=== PATIENT | female | born 1965 | race Caucasian/White ===

== ENCOUNTER 2016-07-07 14:06 | Day surgery (SDC) | payer OTHER ==
[2016-07-04 12:06] VITALS: BMI 29.6
[2016-07-07] MEDS ORDERED: SCOPOLAMINE HYDROBROMIDE 1 PATCH PATCH.TD72 ONE (15:29)
[2016-07-07] MEDS ORDERED: MIDAZOLAM HCL 2 MG/2 ML SINGLE DOSE VIAL ONE ×3 (15:34→15:37)
[2016-07-07] MEDS ORDERED: PROPOFOL 20 ML ONE ×2 (15:37→15:53)
[2016-07-07] MEDS ORDERED: SUCCINYLCHOLINE CHLORIDE 200 MG/10 ML VIAL ONE (15:37)
[2016-07-07] MEDS ORDERED: LIDOCAINE HCL/PF 2% SDV 5ML VIAL ONE (15:37)
[2016-07-07] MEDS ORDERED: ACETAMINOPHEN INJECTION 100 ML IVPB ONE (16:05)
[2016-07-07] MEDS ORDERED: DEXAMETHASONE SOD PHOSPHATE 4 MG/1 ML VIAL ONE (16:57)
[2016-07-07] MEDS ORDERED: PROMETHAZINE HCL 25 MG/1 ML VIAL IVPUSH PRN (17:33)
[2016-07-07] MEDS ORDERED: ONDANSETRON 4 MG/2 ML VIAL IVPUSH PRN (17:33)
[2016-07-07] MEDS ORDERED: oxyCODONE HCL 5 MG TABLET PO PRN ×2 (17:33→17:37)
--- NOTE | 2016-07-07 17:33 | HP ---
Admitting History and Physical - Admission History of Present Illness: 51 year old female with chronic leg swelling and varicose veins. She has had vein stripping and ablations in past with no long lsting improvement. She has pain in the varicosities of the right medial calf and thigh. History Source: Patient - Past Medical History Cardiovascular: Yes: HTN ...LMP: 12/11/06 - Smoking History Smoking history: Former smoker Have you smoked in the past 12 months: No If you are a former smoker, when did you quit?: 11 YRS AGO - Alcohol/Substance Use Hx Alcohol Use: No Home Medications - Allergies Allergies/Adverse Reactions: Allergies Allergy/AdvReac Type Severity Reaction Status Date / Time ciprofloxacin HCl Allergy Intermediate SOB, Verified 07/07/16 14:42 [From Cipro] DIZZINESS codeine [Codeine] Allergy Intermediate DIZZINESS/DIFF Verified 07/07/16 14:42 BREATHING ketamine [Ketamine] AdvReac Severe TWITCHING Verified 07/07/16 14:42 IV CONTRAST Allergy Intermediate Hives, Uncoded 07/07/16 14:42 DIFFICULTY BREATHING - Home Medications Home Medications: Ambulatory Orders Metoprolol Succinate [Toprol XL -] 12.5 mg PO BID 02/09/12 Omeprazole [Prilosec (RX)] 20 mg PO BID 02/09/12 Ibuprofen 600 mg PO BID PRN 07/08/12 Oxycodone HCl/Acetaminophen [Percocet 10-325 mg Tablet -] 1 tab PO ASDIR Physical Examination Vital Signs: Vital Signs Temperature 98.0 F 07/07/16 14:37 Pulse Rate 84 07/07/16 14:37 Respiratory Rate 16 07/07/16 14:37 Blood Pressure 117/73 07/07/16 14:37 O2 Sat by Pulse Oximetry (%) 99 07/07/16 14:37 Constitutional: Yes: No Distress Eyes: Yes: WNL HENT: Yes: WNL Neck: Yes: WNL Cardiovascular: Yes: Regular Rate and Rhythm Respiratory: Yes: Regular Gastrointestinal: Yes: Soft, Abdomen, Obese Extremities: Yes: Other (Multiple large varicose veins of medial thigh and calf) Edema: Yes Edema: LLE: 3+, RLE: 3+ Peripheral Pulses WNL: Yes Assessment/Plan Symptomatic varicose veins right leg. Plan ligation of SFJ and microphlebectomy.
--- NOTE | 2016-07-07 17:36 | OP ---
Operative Note - Note: Operative Date: 07/07/16 Pre-Operative Diagnosis: Symptomatic varicose veins right leg Operation: Ligation right saphenofemoral junction. Microphlebectomy right leg varicose veins. Findings: Multiple large varicose veins right thigh and calf Post-Operative Diagnosis: Same as Pre-op Surgeon: Nadeem Alston Account Services Coordinator: Diane Pena Anesthesiologist/FILEMAKER DEVELOPER: Nate Vallejo Anesthesia: General Specimens Removed: Varicose vein segments
[2016-07-07] MEDS ORDERED: LACTATED RINGERS SOLUTION 1,000 ML IV SCH (17:45)
[2016-07-07] MEDS ORDERED: oxyCODONE HCL 5 MG TABLET ONE ×2 (19:07→19:22)
[2016-07-07 19:28] VITALS: TEMP 98.4
[2016-07-07 19:59] VITALS: BP 105/63; PULSE 87
--- NOTE | 2016-07-13 18:32 | OP ---
DATE OF OPERATION: 07/07/2016 SURGEON: Nadeem Bautista MD WATER SOFTENER INSTALLER: EVANS Bell PROCEDURE: Ligation of the right saphenofemoral junction. Micro-phlebectomy of the right leg varicose veins. There were greater than 20 incisions made. PREOPERATIVE DIAGNOSIS: Multiple varicose veins, right lower extremity. POSTOPERATIVE DIAGNOSIS: Multiple varicose veins, right lower extremity. ANESTHESIA: General. ANESTHESIOLOGIST: Nate Vallejo MD OPERATIVE FINDINGS: There were dilated varicose veins on the medial and lateral aspect of the right lower thigh and calf. The proximal greater saphenous vein was dilated. OPERATIVE PROCEDURE: Following routine patient identification with side and site verification, general anesthesia was induced. The right leg and groin were prepped with ChloraPrep. Time-out was performed. An incision was then made over the saphenofemoral junction, which had been mapped preoperatively with duplex imaging. This was carried down to subcutaneous tissues using cautery. The proximal greater saphenous vein was identified at the junction with the femoral vein. Side branches of the saphenous bulb were ligated with self ties and divided. The saphenous vein was then doubly ligated at the juncture and the distal end clamped. The vein was transected. The distal portion of the greater saphenous vein was then retracted and attachments to the soft tissues were bluntly dissected. The vein was then clamped and a section removed and the end tied with a suture ligature of 2-0 Vicryl. The wound was irrigated and closed with interrupted suture of 3-0 Vicryl in subcutaneous tissues and subcuticular suture of 4-0 Biosyn. Attention was then turned to the varicose veins of the leg, which had been marked with the patient standing before coming to the operating room. Stab avulsion procedure was performed to remove all marked veins. In brief, a small incision was made over the varicosity with a quinault blade and the vein lifted to the skin level with a vein hook. It was grasped with clamps and retracted until it avulsed. Pressure was applied and the next more distal vein was removed in a similar fashion. In this manner, all marked veins were removed. Greater than 20 incisions were required. The leg was then elevated and pressure applied until bleeding ceased. The leg was washed with saline, dried, and dressed with Xeroform gauze, dry gauze, and pads, Kerlix, Webril, and Coban. The groin wound was dressed with Steri-Strips, dry gauze, and bio-occlusive dressing. The patient was then extubated and taken to the recovery room in stable condition. NADEEM BAUTISTA M.D. CALOS/[id number]
== END 2016-07-07 19:59 | disposition home or self-care (01) ==
LOC: JASU-SURG 14:06
PROVIDERS: ATTEND Surgery
PROC: 06DY0ZZ Extraction of Lower Vein, Open Approach (ICD-10-PCS; 2016-07-07)
PROC: 06LP0ZZ Occlusion of Right Saphenous Vein, Open Approach (ICD-10-PCS; principal; 2016-07-07 15:30)
DX: I83.891 Varicose veins of right lower extremity with other complications (principal)
CPT/HCPCS: 94760

== ENCOUNTER 2017-09-04 06:50 | Day surgery (SDC) | payer OTHER ==
[2017-09-01 18:52] VITALS: BMI 29.6
[2017-09-04] MEDS ORDERED: ONDANSETRON 4 MG/2 ML VIAL IVPUSH PRN (07:13)
[2017-09-04] MEDS ORDERED: LACTATED RINGERS SOLUTION 1,000 ML IV SCH (07:15)
[2017-09-04] MEDS ORDERED: LIDOCAINE HCL/PF 2% SDV 5ML VIAL ONE (07:53)
[2017-09-04] MEDS ORDERED: PROPOFOL 20 ML ONE ×3 (07:54→09:39)
[2017-09-04] MEDS ORDERED: KETOROLAC TROMETHAMINE 30 MG/1 ML VIAL ONE (07:55)
[2017-09-04] MEDS ORDERED: MIDAZOLAM HCL 2 MG/2 ML SINGLE DOSE VIAL ONE (07:59)
[2017-09-04] MEDS ORDERED: ceFAZolin SODIUM 1 GM VIAL ONE ×2 (08:02→09:31)
[2017-09-04] MEDS ORDERED: BUPIVACAINE HCL/PF 2.5 MG/ML - 30 ML VIAL IJ ONE (08:43)
[2017-09-04] MEDS ORDERED: EPINEPHrine 1:1,000 1 MG/1 ML - 30ML VIAL (INJECTION) ONE (08:43)
[2017-09-04] MEDS ORDERED: ONDANSETRON 4 MG/2 ML VIAL ONE ×2 (09:01→09:21)
[2017-09-04] MEDS ORDERED: DEXAMETHASONE SOD PHOSPHATE 4 MG/1 ML VIAL ONE (09:21)
[2017-09-04] MEDS ORDERED: SODIUM CHLORIDE 0.9% P/F 10 ML VIAL IJ ONE (09:31)
[2017-09-04] MEDS ORDERED: HYDROmorphone HCL/PF 1 MG/ML VIAL (FOR PYXIS CHARGING ONLY) ONE (10:02)
[2017-09-04] MEDS ORDERED: BUPIVACAINE HCL/PF 0.25% (2.5MG/ML) 10 ML VIAL IJ ONE (10:06)
[2017-09-04] MEDS ORDERED: oxyCODONE HCL 5 MG TABLET PO PRN ×2 (10:23→10:25)
[2017-09-04] MEDS ORDERED: oxyCODONE HCL 5 MG TABLET ONE ×2 (10:40→11:54)
[2017-09-04] MEDS ORDERED: oxyCODONE HCL 5 MG TABLET PO ONE (10:47)
[2017-09-04 13:30] VITALS: TEMP 98.4
[2017-09-04 13:47] VITALS: BP 128/72; PULSE 67
--- NOTE | 2017-09-06 08:01 | OP ---
DATE OF OPERATION: 09/04/2017 SURGEON: Wilmer Steve MD PAINT LABORATORY TECHNICIAN: EVANS Owens PREOPERATIVE DIAGNOSES: 1. Left knee medial and lateral meniscal tear. 2. Left knee cartilage injury. 3. Left knee synovitis. POSTOPERATIVE DIAGNOSES: 1. Left knee medial and lateral meniscal tear. 2. Left knee cartilage injury. 3. Left knee synovitis. PROCEDURE: 1. Left knee arthroscopy with partial meniscectomy of the medial and lateral meniscus; CPT code 97696. 2. Left knee arthroscopy with chondroplasty and abrasion plasty; CPT code 38692. 3. Left knee arthroscopy with synovectomy; CPT code 82513. FINDINGS: 1. Medial meniscus body and posterior horn tear. 2. Lateral meniscus posterior horn tear. 3. Synovitis of the patellofemoral and medial and lateral notch areas. 4. Central grade 2 to 4 cartilage injury of the medial femoral condyle with grade 2 changes of the medial tibial plateau. 5. ACL and PCL intact. 6. Diffuse grade 1 to 2 cartilage injury of the lateral joint line. 7. Central grade 1 to 2 cartilage injury of the patella with anterior grade 4 changes. 8. Medial synovial adhesions with grade 4 patellofemoral, trochlea. PROCEDURE: Informed consent was obtained. The patient came to the operating room, where the lower extremity was prepped and draped in a sterile fashion. A tourniquet was placed on the upper thigh, but not inflated. Using standard arthroscopic technique, a lateral incision and portal was made to allow for introduction of the camera into the suprapatellar bursa. This was then taken to the medial joint line, where under direct visualization, a medial incision and portal was made. Excessive synovium noted in the medial, lateral and patellofemoral and notch area was removed by an upbiter, shaver and Bovie cautery. This was found to bring in inflammatory tissue into the joint surface, a source of pain and dysfunction. Probing of the medial and lateral meniscus found tears, as described in the findings. These were removed with the upbiter and shaver and taken back to a stable rim. Grade 2 to 3 degenerative changes were treated with a chondroplasty, removing all flaking surfaces with low-setting Bovie along the periphery to prevent further flaking. Grade 4 changes, as noted, were treated with an abrasion plasty, creating a bleeding surface at the bone/cartilage interface. Aggressive debridement with shaver/joyce created bleeding surface. Microfracture also done when indicated in findings All areas of the knee were once again reexamined. The knee was then drained and a single suture was placed in all portals. A sterile dressing was placed and the patient was transferred to the recovery room without complication. WILMER STEVE M.D. [id number]
--- NOTE | 2017-09-07 17:49 | PATH ---
Surgical Pathology Report Patient Name: KIM BRANDT [facility]. Rec. #: [id number] /Age/Gender: 1965 (Age: 52) / F Account: [id number] Location: [facility] AMBULATORY Taken: 09/04/2017 Received: 09/04/2017 Reported: 09/07/2017 Physicians: Wilmer Oliva M.D. Specimen(s) Received LEFT KNEE SHAVINGS Clinical History Left knee meniscus tear Final Diagnosis KNEE SHAVINGS, LEFT, ARTHROSCOPY: FRAGMENTS OF CARTILAGE, DENSE FIBROCONNECTIVE TISSUE, FIBROADIPOSE TISSUE, AND SYNOVIUM. Electronically Signed Heather Munoz M.D. Gross Description Received in formalin, labeled "left knee shavings," is a 4.3 x 2.8 x 0.3 cm. aggregate of wylie-yellow soft tissue fragments. A traveling representative portion is submitted in one cassette. /09/04/2017 saudi09/04/2017
== END 2017-09-04 12:00 | disposition home or self-care (01) ==
LOC: FASU 06:50
PROVIDERS: ATTEND Orthopaedic Surgery
PROC: 0SBD4ZZ Excision of Left Knee Joint, Percutaneous Endoscopic Approach (ICD-10-PCS; 2017-09-04)
PROC: 0SBD4ZZ Excision of Left Knee Joint, Percutaneous Endoscopic Approach (ICD-10-PCS; principal; 2017-09-04 09:41)
DX: S83.242A Other tear of medial meniscus, current injury, left knee, initial encounter (principal); S83.282A Other tear of lateral meniscus, current injury, left knee, initial encounter; S83.8X2A Sprain of other specified parts of left knee, initial encounter; M65.862 Other synovitis and tenosynovitis, left lower leg; X58.XXXA Exposure to other specified factors, initial encounter; Y93.9 Activity, unspecified; Y92.9 Unspecified place or not applicable
CPT/HCPCS: 88304-TC; 94760

== ENCOUNTER 2018-01-20 10:04 | Day surgery (SDC) | payer OTHER ==
[2018-01-18 11:51] VITALS: BMI 31.1
--- NOTE | 2018-01-20 11:38 | HP ---
Satellite PMH - Chief Complaint History of Present Illness: 53 year old woman with chronic venous insufficiency. She has had multiple vein surgeries in both legs in the past. Sh ehas recurrent varicose veins of the left leg with pain and swelling. History Source: Patient - Past Medical History Allergies/Adverse Reactions: Allergies Allergy/AdvReac Type Severity Reaction Status Date / Time ciprofloxacin HCl Allergy Intermediate SOB, Verified 09/04/17 07:45 [From Cipro] DIZZINESS codeine [Codeine] Allergy Intermediate DIZZINESS/DIFF Verified 09/04/17 07:45 BREATHING fentanyl AdvReac Severe Verified 09/04/17 07:45 ketamine [Ketamine] AdvReac Severe TWITCHING Verified 09/04/17 07:45 IV CONTRAST Allergy Intermediate Hives, Uncoded 09/04/17 07:45 DIFFICULTY BREATHING SUPERVISOR PIPELINE: Yes: Other Cardiovascular: Yes: HTN ...LMP: 12/11/06 - Current Medications Current Medications: Home Medications Medication Instructions Recorded Metoprolol Succinate [Toprol XL -] 12.5 mg PO BID 02/09/12 Ibuprofen 600 mg PO BID PRN 07/08/12 Oxycodone HCl/Acetaminophen 1 tab PO ASDIR 09/14/14 [Percocet 10-325 mg Tablet -] Cyclobenzaprine HCl [Flexeril -] 10 mg PO HS PRN 09/01/17 Pantoprazole Sodium 40 mg PO DAILY 01/18/18 Lactulose 1 gm PO PRN 01/20/18 Metronidazole 250 mg PO TID 01/20/18 Ondansetron HCl [Zofran] 4 mg PO PRN 01/20/18 Satellite Physical Exam - Physical Examination Vital Signs: Vital Signs Period Temp Pulse Resp BP Sys/Beltran Pulse Ox Last 24 Hr 98 F 83 16 128/82 98-98 General Appearance: Obese ENT: Clear Lung: Clear to auscultation Heart: Regular rate & rhythm Abdomen: Soft Extremities: Other (Brawny edema both legs with multiple large varicose veins of left medial thigh and calf and posterior upper calf.) Satellite Impression/Plan - Impression/Plan Impression: Superficial venous insufficiecny with varicose veins and pain. Operative Procedure: Ligation left saphenofemoral junction and microphlebectomy Date to be Performed: 01/20/18
[2018-01-20] MEDS ORDERED: MIDAZOLAM HCL 2 MG/2 ML SINGLE DOSE VIAL ONE ×2 (11:54→11:56)
[2018-01-20] MEDS ORDERED: PROPOFOL 20 ML ONE (11:59)
[2018-01-20] MEDS ORDERED: ceFAZolin SODIUM 1 GM VIAL IVPB ONE (12:00)
[2018-01-20] MEDS ORDERED: BUPIVACAINE HCL/PF (5 MG/ML) 30 ML VIAL IJ ONE (12:25)
[2018-01-20] MEDS ORDERED: ACETAMINOPHEN 325 MG TABLET (FP) PO PRN (13:43)
--- NOTE | 2018-01-20 13:43 | OP ---
Operative Note - Note: Operative Date: 01/20/18 Pre-Operative Diagnosis: Painful varicose veins left leg Operation: Ligation and stripping left leg varicose veins. Findings: Dilated saphenofemoral junction and tributaries. Varicose veins of anterior and medial thigh and calf. Post-Operative Diagnosis: Same as Pre-op Surgeon: Nadeem Alston Anesthesiologist/MALE INFERTILITY SPECIALIST: Adriana Vaz MD Anesthesia: General Specimens Removed: Varicose veins Estimated Blood Loss (mls): 50
[2018-01-20] MEDS ORDERED: oxyCODONE HCL 5 MG TABLET PO PRN ×2 (14:24)
[2018-01-20] MEDS ORDERED: ONDANSETRON 4 MG/2 ML VIAL IVPUSH PRN (14:24)
[2018-01-20] MEDS ORDERED: LACTATED RINGERS SOLUTION 1,000 ML IV SCH (14:30)
[2018-01-20 16:28] VITALS: BP 116/76; PULSE 88; TEMP 97.8
--- NOTE | 2018-01-20 19:05 | OP ---
DATE OF OPERATION: 01/20/2018 SURGEON: Nadeem Alston MD PROCEDURE: Ligation of left saphenous vein and stripping of left leg varicose veins. PREOPERATIVE DIAGNOSIS: Painful varicose veins of the left leg. POSTOPERATIVE DIAGNOSIS: Painful varicose veins of the left leg. ANESTHESIA: General. ANESTHESIOLOGIST: Adriana Vaz MD OPERATIVE FINDINGS: The proximal great saphenous vein was dilated and varicosed. There were multiple dilated branches off of the saphenofemoral junction. There were multiple distal saphenous vein tributaries with varicose veins in the medial thigh, calf, and posterior calf. OPERATIVE PROCEDURE: Prior to entering the operating room, the varicose veins of the left lower extremity were marked on the skin with the patient standing. The patient was brought to the operating room and general anesthesia was induced. The left leg was prepped with ChloraPrep. Timeout was performed. A transverse incision was made in the left groin over the saphenofemoral junction. The wound was carried deep into the subcutaneous tissues using cautery. The saphenofemoral junction was dissected and all side branches off of the saphenous vein were ligated with silk ties and divided. The vein was transected and side branches were dissected free as far as possible and then we ligated and excised. The wound was closed with interrupted sutures of 3-0 Vicryl in subcutaneous tissues and a running subcuticular suture of 4-0 Biosyn on the skin. Removal of the varicose veins was then performed using a stab avulsion technique. Small incisions were made over the marked veins, which were then elevated to the level of the skin with a vein hook, grasped with clamps, and gently retracted until they avulsed. Each of the marked veins was then removed with greater than 20 incisions made. The leg was then elevated and cleansed with saline and dried. Xeroform gauze was applied to the leg incisions. The leg was then wrapped with dry gauze, Kerlix, Webril, and Coban. The groin incision was covered with dry gauze and bio-occlusive dressings. The patient was then extubated and taken to the recovery room in stable condition. Sebastien PRIETO/[id number]
--- NOTE | 2018-01-22 16:03 | PATH ---
Surgical Pathology Report Patient Name: KIM BRANDT [facility]. Rec. #: [id number] /Age/Gender: 1965 (Age: 53) / F Account: [id number] Location: [facility] SURGICAL Taken: 01/20/2018 Received: 01/21/2018 Reported: 01/22/2018 Physicians: Nadeem Alston M.D. Specimen(s) Received PORTIONS OF VEINS LEFT LEG Clinical History Chronic venous insufficiency Final Diagnosis PORTIONS OF VEINS, LEFT LEG, MICROPHLEBECTOMY: CONSISTENT WITH VARICOSE VEINS. Electronically Signed Italia Monique M.D. Gross Description Received in formalin labeled "veins left leg," is a 4.0 x 2.5 x 0.2 cm aggregate of wylie-melvin portions of vasculature, consistent with veins. A retail customer service representative portion is submitted in one cassette. DL/01/21/2018 saudi/01/21/2018
== END 2018-01-20 16:25 | disposition home or self-care (01) ==
LOC: JASU-SURG 10:04
PROVIDERS: ATTEND Surgery
PROC: 06LQ0ZZ Occlusion of Left Saphenous Vein, Open Approach (ICD-10-PCS; 2018-01-20)
PROC: 06DY0ZZ Extraction of Lower Vein, Open Approach (ICD-10-PCS; principal; 2018-01-20 11:00)
DX: I83.812 Varicose veins of left lower extremity with pain (principal)
CPT/HCPCS: 88304-TC

== ENCOUNTER 2018-04-07 09:16 | Day surgery (SDC) | payer OTHER ==
[2018-04-01 14:36] VITALS: BMI 31.1
[2018-04-07] MEDS ORDERED: PROPOFOL 20 ML ONE ×10 (09:36→12:18)
[2018-04-07] MEDS ORDERED: MIDAZOLAM HCL 2 MG/2 ML SINGLE DOSE VIAL ONE (09:39)
--- NOTE | 2018-04-07 10:13 | HP ---
Satellite PMH - Chief Complaint History of Present Illness: 53 year old woman with chronic venous insufficiency of both legs. She has had multiple procedures on both legs in the past and is now complaining of enlarging painful veins in the right thigh and calf. Venous Duplex showed dilated proximal GSV with distal ablation and multiple varicose branches. - Past Medical History Allergies/Adverse Reactions: Allergies Allergy/AdvReac Type Severity Reaction Status Date / Time ciprofloxacin HCl Allergy Intermediate SOB, Verified 09/04/17 07:45 [From Cipro] DIZZINESS codeine [Codeine] Allergy Intermediate DIZZINESS/DIFF Verified 09/04/17 07:45 BREATHING fentanyl AdvReac Severe Verified 09/04/17 07:45 ketamine [Ketamine] AdvReac Severe TWITCHING Verified 09/04/17 07:45 IV CONTRAST Allergy Intermediate Hives, Uncoded 09/04/17 07:45 DIFFICULTY BREATHING ERP MANAGER: Yes: Other Cardiovascular: Yes: HTN ...LMP: 12/11/06 - Current Medications Current Medications: Home Medications Medication Instructions Recorded Metoprolol Succinate [Toprol XL -] 12.5 mg PO BID 02/09/12 Ibuprofen 600 mg PO DAILY PRN 07/08/12 Oxycodone HCl/Acetaminophen 1 tab PO ASDIR 09/14/14 [Percocet 10-325 mg Tablet -] Cyclobenzaprine HCl [Flexeril -] 10 mg PO HS PRN 09/01/17 Lactulose 1 gm PO PRN 01/20/18 Ondansetron HCl [Zofran] 4 mg PO PRN 01/20/18 Satellite Physical Exam - Physical Examination Vital Signs: Vital Signs Period Temp Pulse Resp BP Sys/Beltran Pulse Ox Last 24 Hr 97 General Appearance: Obese ENT: Clear Lung: Clear to auscultation Heart: Regular rate & rhythm Abdomen: Soft Extremities: Other (3+ edema bilateral calves and feet. Multiple varicose veions of right medial and anterior thigh and calf.) Neurological: Intact Satellite Impression/Plan - Impression/Plan Impression: Recurrent varicose veins right leg. Operative Procedure: Ligation saphenofemoral junction and microphlebectomy right leg. Date to be Performed: 04/07/18
[2018-04-07] MEDS ORDERED: ceFAZolin SODIUM 1 GM VIAL IVPB ONE (10:50)
[2018-04-07] MEDS ORDERED: ceFAZolin SODIUM 1 GM VIAL ONE (10:54)
[2018-04-07] MEDS ORDERED: BUPIVACAINE HCL/PF 0.25% (2.5MG/ML) 10 ML VIAL IJ ONE (11:09)
[2018-04-07] MEDS ORDERED: DEXAMETHASONE SOD PHOSPHATE 4 MG/1 ML VIAL ONE (11:23)
--- NOTE | 2018-04-07 12:51 | OP ---
Operative Note - Note: Operative Date: 04/07/18 Pre-Operative Diagnosis: Painful varicose veins right leg Operation: Ligation right spahenofemoral junction. Microphlebectomy right leg varicose veins, > 20 incisions. Findings: Multiple dilated veins in the right groin arising from saphenofemoral junction. Multiple varicose veins of the right thigh and calf. Post-Operative Diagnosis: Same as Pre-op Surgeon: Nadeem Alston Faculty Research Physician: Diane Pena Anesthesiologist/SENIOR TELECOMMUNICATIONS CONSULTANT: Page Hart Anesthesia: General Specimens Removed: pieces of varicose veins
[2018-04-07] MEDS ORDERED: ACETAMINOPHEN INJECTION 100 ML IVPB ONE (13:02)
[2018-04-07] MEDS ORDERED: ONDANSETRON 4 MG/2 ML VIAL ONE (13:02)
[2018-04-07] MEDS ORDERED: ONDANSETRON 4 MG/2 ML VIAL IVPUSH PRN (13:06)
[2018-04-07] MEDS ORDERED: oxyCODONE HCL 5 MG TABLET PO PRN ×2 (13:06→13:09)
[2018-04-07] MEDS ORDERED: ACETAMINOPHEN 1000 MG/100 ML VIAL (NON FORMULARY) IVPB ONE (13:06)
[2018-04-07] MEDS ORDERED: ACETAMINOPHEN 325 MG TABLET (FP) PO PRN (13:09)
[2018-04-07] MEDS ORDERED: LACTATED RINGERS SOLUTION 1,000 ML IV SCH (13:15)
[2018-04-07 13:21] VITALS: TEMP 97.6
[2018-04-07] MEDS ORDERED: oxyCODONE HCL 5 MG TABLET ONE (13:33)
[2018-04-07 16:11] VITALS: BP 129/79; PULSE 93
--- NOTE | 2018-04-08 15:59 | PATH ---
Surgical Pathology Report Patient Name: KIM BRANDT [facility]. Rec. #: [id number] /Age/Gender: 1965 (Age: 53) / F Account: [id number] Location: [facility] SURGICAL Taken: 04/07/2018 Received: 04/07/2018 Reported: 04/08/2018 Physicians: Nadeem Alston M.D. Specimen(s) Received PORTIONS OF RIGHT VEIN,VARICOSITY Clinical History Right varicose veins Final Diagnosis PORTIONS OF RIGHT VARICOSE VEIN, EXCISION: SEGMENTS OF VARICOSE VEIN. Electronically Signed Italia Monique M.D. Gross Description Received in formalin labeled "portion of right varicose veins," is a 2.4 x 2.0 x 0.3 cm aggregate of wylie-pink portions of vasculature, consistent with varicose veins. Hose Turner sections are submitted in one cassette. DL/04/07/2018 saudi04/07/2018
--- NOTE | 2018-04-10 12:35 | OP ---
DATE OF OPERATION: 04/07/2018 SURGEON: Nadeem Bautista MD LOZENGE DOUGH MIXER: EVANS Bell PROCEDURE: Ligation, right saphenofemoral junction with microphlebectomy of right leg varicose veins with greater than 20 incisions. PREOPERATIVE DIAGNOSIS: Painful varicose veins of right leg, recurrent. POSTOPERATIVE DIAGNOSIS: Painful varicose veins of right leg, recurrent. ANESTHESIA: General. ANESTHESIOLOGIST: Page Hart MD OPERATIVE FINDINGS: Multiple dilated veins in the right groin, thigh and proximal calf. There was extensive scarring in the groin from previous dissection. OPERATIVE PROCEDURE: Following routine patient identification with side and site verification, varicose veins of the right leg were marked on the skin with ink. General anesthesia was induced and the right leg was prepped with ChloraPrep. Timeout was performed. Marcaine, 0.5% was infiltrated in the skin of the right groin and a transverse incision was made. The subcutaneous tissues were divided using cautery for hemostasis. Multiple enlarged varicose branches of the saphenous bulb were identified and were ligated with silk ties and Vicryl ties. Dissection was carried deep toward the femoral vein, but due to the large amount of venous tributaries and bleeding, decision was made not to do a formal dissection of the femoral vein. As many branches as could be safely ligated were done, and the wound was then closed with interrupted suture of 3-0 Vicryl and subcutaneous suture of 4-0 Biosyn. Stab phlebectomy of the distal veins was then performed in the usual fashion. In brief, incision was made over the marked varicosity with Hodgeman blade and the vein was elevated to the level of the skin with a vein hook. It was grasped with clamps and gently retracted until it avulsed. Pressure was applied and the next more distal branch was treated. In this manner, all marked veins were removed with greater with 20 small incisions made. The leg was then elevated and pressure applied to control bleeding. The leg was washed with saline and dried. The wounds were covered with Xeroform gauze and the leg was dressed with dry gauze, Combine, Kerlix, Webril and Coban. A sterile dressing was placed on the groin incision. The patient was extubated and taken to the recovery room in stable condition. NADEEM BAUTISTA M.D. CALOS/[id number]
== END 2018-04-07 16:28 | disposition home or self-care (01) ==
LOC: JASU-SURG 09:16
PROVIDERS: ATTEND Surgery
PROC: 06LP0ZZ Occlusion of Right Saphenous Vein, Open Approach (ICD-10-PCS; principal; 2018-04-07 10:00)
DX: I83.891 Varicose veins of right lower extremity with other complications (principal)
CPT/HCPCS: 88304-TC; 94760; J0131

== ENCOUNTER 2018-09-23 16:53 | Observation (INO) | payer BC ==
[2018-09-23] MEDS ORDERED: FAMOTIDINE 20 MG/50 ML IVPB 20 MG/50 ML MG IVPB ONE (16:55)
[2018-09-23] MEDS ORDERED: methylPREDNISolone NA SUCC 125 MG/2 ML VIAL IVPB ONE ×2 (16:55→19:20)
[2018-09-23] MEDS ORDERED: SODIUM CHLORIDE 0.9% 1000 ML INFUS.BAG IV ONE (16:55)
[2018-09-23 17:39] VITALS: BMI 26.6
--- NOTE | 2018-09-23 19:09 | PDOC ---
Documentation entered by Jemma Vincent SCRIBE, acting as scribe for Eneida Hays DO. Eneida Hays DO: This documentation has been prepared by the maurilioibe, Jemma Vincent SCRIBE, under my direction and personally reviewed by me in its entirety. I confirm that the documentation accurately reflects all work, treatment, procedures, and medical decision making performed by me. History of Present Illness - General Chief Complaint: Allergic Reaction Stated Complaint: ALLERGIC REACTION' Time Seen by Provider: 09/23/18 16:55 History Source: Patient Exam Limitations: No Limitations - History of Present Illness Initial Comments: 09/23/18 18:55 The patient is a 53 year old female with past medical history significant for SVT, Acid reflux, Chronic abd pain, Gallstones, Cholecystectomy, Diverticulitis , GERD Presents to the emergency department s/p an allergic reaction. The patient reports she was scheduled for an outpatient abdominal CT secondary to chronic abdominal pain. The patient reports a known allergic history to IV contrast, patient reports taking prednisone and medication to prepare for the contrast. The patient was getting the scan, when she had an acute shortness of breath, palpitations and the sensation of throat closing. Rapid response was called at the CT, the patient was brought to the ER. on arrival, the patient was noted to be typenic, tachycardic to 150s and RR 30/minute. No stridor or wheezing noted on arrival. The patient was speaking in full sentences. Allergies:Ciprofloxacin HCl, Codeine, Ketamine, IV Contrast PCP: Dr. Micah Seo GI: Dr. Gerardo. Past History - Past Medical History Allergies/Adverse Reactions: Allergies Allergy/AdvReac Type Severity Reaction Status Date / Time ciprofloxacin HCl Allergy Intermediate SOB, Verified 09/23/18 17:39 [From Cipro] DIZZINESS codeine [Codeine] Allergy Intermediate DIZZINESS/DIFF Verified 09/23/18 17:39 BREATHING fentanyl AdvReac Severe Verified 09/23/18 17:39 ketamine [Ketamine] AdvReac Severe TWITCHING Verified 09/23/18 17:39 IV CONTRAST Allergy Intermediate Hives, Uncoded 09/23/18 17:39 DIFFICULTY BREATHING Home Medications: Ambulatory Orders Metoprolol Succinate [Toprol XL -] 12.5 mg PO BID 02/09/12 Oxycodone HCl/Acetaminophen [Percocet 10-325 mg Tablet] 1 tab PO ASDIR 09/14/14 Cyclobenzaprine HCl [Flexeril -] 10 mg PO HS PRN 09/01/17 Lactulose 1 gm PO PRN 01/20/18 Ondansetron HCl [Zofran] 4 mg PO PRN 01/20/18 Anemia: No Asthma: Yes Cancer: No Cardiac Disorders: Yes (PALPITATIONS, SVT) CVA: No COPD: No CHF: No Dementia: No Diabetes: No GI Disorders: Yes (GASTRITIS, diverticulois) Disorders: No HTN: No Hypercholesterolemia: No Liver Disease: No Seizures: No Thyroid Disease: No - Surgical History Abdominal Surgery: No Appendectomy: No Cardiac Surgery: No Cholecystectomy: Yes (2005) Lung Surgery: No Neurologic Surgery: No Orthopedic Surgery: No - Immunization History Immunization Up to Date: Yes - Suicide/Smoking/Psychosocial Hx Smoking History: Former smoker Have you smoked in the past 12 months: No If you are a former smoker, when did you quit?: 2005 Hx Alcohol Use: No Drug/Substance Use Hx: No Substance Use Type: None Hx Substance Use Treatment: No Review of Systems - Review of Systems Able to Perform ROS?: Yes Comments:: 09/23/18 18:57 GENERAL/CONSTITUTIONAL: No fever or chills. No weakness. HEAD, EYES, EARS, NOSE AND THROAT: +sensation of throat closing. No change in vision. No ear pain or discharge. GASTROINTESTINAL: No nausea, vomiting, diarrhea or constipation. GENITOURINARY: No dysuria, frequency, or change in urination. CARDIOVASCULAR: +SOB and palpitations. No chest pain. RESPIRATORY: No cough, wheezing, or hemoptysis. MUSCULOSKELETAL: No joint or muscle swelling or pain. No neck or back pain. SKIN: No rash NEUROLOGIC: No headache, vertigo, loss of consciousness, or change in strength/ sensation. ENDOCRINE: No increased thirst. No abnormal weight change. HEMATOLOGIC/LYMPHATIC: No anemia, easy bleeding, or history of blood clots. ALLERGIC/IMMUNOLOGIC: No hives or skin allergy. *Physical Exam - Vital Signs Last Vital Signs Temp Pulse Resp BP Pulse Ox 98.3 F 87 22 H 124/84 100 09/23/18 16:53 09/23/18 16:53 09/23/18 16:53 09/23/18 16:53 09/23/18 16:53 - Physical Exam Comments: 09/23/18 18:37 Constitutional: Awake, alert, oriented. No acute distress. Head: Normocephalic. Atraumatic Eyes: PERRL. EOMI. Conjunctivae are not pale. ENT: Mucous membranes are moist and intact. Posterior pharynx clear, without exudates or erythema. Uvula midline. No stridor. Neck: Supple. Full ROM. No lymphadenopathy. Cardiovascular: Regular rate. Regular rhythm. S1, S2 regular. Distal pulses are 2+ and symmetric. Pulmonary/Chest: No evidence of respiratory distress. Clear to auscultation bilaterally No wheezing, rales or rhonchi. Abdominal: Soft and nondistended. There is no tenderness. No rebound, guarding or rigidity. No organomegaly. No palpable masses. Good bowel sounds. Back: No CVA tenderness. Musculoskeletal: No edema. No cyanosis. No clubbing. Full range of motion in all extremities. No calf tenderness. Radial/pedal pulses are intact and 2+ bilaterally Skin: No rashes. Skin is warm and dry. No petechiae. No purpura. Neurological: Alert and oriented to person, place, and time. Cranial nerves II -XII are grossly intact. Normal speech. Strength is grossly symmetric. No sensory deficits. Psychiatric: Good eye contact. Normal interaction, affect and behavior. Heart Score/ECG Review - ECG Intrepretation Comment:: 09/23/18 19:03 sinus at 83, nl axis, nl interval, no acute st/t wave findings ED Treatment Course - RADIOLOGY Radiology Studies Ordered: Category Date Time Status CHEST X-RAY PORTABLE* [RAD] Stat Radiology 09/23/18 16:56 Completed Medical Decision Making - Medical Decision Making 09/23/18 19:01 a/p: 53yo female with allergic reaction to iv contrast during her outpt ct abd/ pelvis -pt had premedicated with steroids/benadryl -pt after the contrast was injected developed palpitatiosn, cp/sob -pt felt her throat was closing - placed on o2 and nss -pt after 1 min felt better and symptoms started to resolved -pt moved to the ED for monitoring -will obtain cxr, ekg, labs -will give benadryl/steroids -pt with hx of svt- on monitor in ct pt had hr in 157 -states she did take her metoprolol this am at 10am -GI is Dr. Gerardo 09/23/18 19:04 ekg is unchanged from prior pt states she feels better pt eating, sitting up no sob, no cp/sob 09/23/18 19:06 cxr clear pt states she does not want labs or medications states she wants to go home discussed signing out AMA discussed risks of signing out AMA answered all quesitons, pt states she wants to sign out ama Note: The patient insists on leaving the emergency dept and is signing out against medical advice. The patient understands the risks and complications that may result from the refusal of medical care and admission which includes and permanent disability. The patient has the mental capacity of understanding the risks of refusing care and is capable of making an informed decision. The patient was instructed to return to the emergency department should she change her mind regarding medical care or should her condition worsen. The patient signed the Against Medical Advice form. 09/23/18 19:[address] Gerardo to update him *DC/Admit/Observation/Transfer Diagnosis at time of Disposition: Palpitations, Dyspnea, Allergy to intravenous contrast - Discharge Dispostion Disposition: AGAINST MEDICAL ADVICE Condition at time of disposition: Unchanged/Unknown - Referrals Referrals: Gabbi Obrien MD [Primary Care Provider] - - Patient Instructions Printed Discharge Instructions: DI for Adverse Drug Reaction -- Allergic Additional Instructions: Please take benadryl tonight for any further itching. Please follow up with your PMD tomorrow. Please return to the ED immediately if you develop sob or palpitations. Please follow up with Dr. Gerardo. Please avoid IV contrast in the future. - Post Discharge Activity - Attestations Physician Attestion: 09/23/18 19:07 I, Dr. Eneida Hays, DO, attest that this document has been prepared under my direction and personally reviewed by me in its entirety. I further attest, that it accurately reflects all work, treatment, procedures and medical decision -making performed by me.
[2018-09-23] MEDS ORDERED: diphenhydrAMINE HCL 25 MG CAPSULE (FP) PO ONE ×2 (19:20→19:49)
[2018-09-23] MEDS ORDERED: methylPREDNISolone NA SUCC 125 MG/2 ML VIAL ONE (19:49)
[2018-09-23 20:26] LABS: BASO % 0.2 % (0-2.0); HEMATOCRIT 37.8 % (32.4-45.2); LYMPH % 6.4 % (8-40); MCH 30.6 pg (25.7-33.7); MCHC 34.3 g/dl (32.0-36.0); MEAN PLT VOLUME 8.2 fl (7.5-11.1); MONO % 1.1 % (3.8-10.2); NEUT % 92.3 % (42.8-82.8); PLATELET COUNT 210 K/MM3 (134-434); RBC 4.25 M/mm3 (3.60-5.2); RDW 13.9 % (11.6-15.6); WHITE BLOOD COUNT 6.6 K/mm3 (4.0-10.0)
[2018-09-23 20:57] LABS: ALBUMIN 3.7 g/dl (3.4-5.0); ALK PHOS 104 U/L (45-117); ANION GAP 9 MMOL/L (8-16); BILIRUBIN,TOTAL 0.3 mg/dL (0.2-1); BLOOD UREA NITROGEN 12.4 mg/dL (7-18); CALCIUM 9.1 mg/dL (8.5-10.1); CHLORIDE 108 mmol/L (98-107); CO2 25 mmol/L (21-32); CREATININE 0.9 mg/dL (0.55-1.3); GLUCOSE,RANDOM 180 mg/dL (74-106); MAGNESIUM 2.3 mg/dL (1.8-2.4); POTASSIUM 4.4 mmol/L (3.5-5.1); SGOT/AST 26 U/L (15-37); SGPT/ALT 41 U/L (13-61); SODIUM 142 mmol/L (136-145); TOT PROT 6.9 g/dl (6.4-8.2)
[2018-09-23] MEDS ORDERED: oxyCODONE HCL 5 MG TABLET PO ONE (22:02)
[2018-09-23] MEDS ORDERED: METOPROLOL TARTRATE 25 MG TABLET (FP) PO ONE (22:02)
[2018-09-23] MEDS ORDERED: oxyCODONE HCL 5 MG TABLET ONE (22:56)
[2018-09-23] MEDS ORDERED: METOPROLOL TARTRATE 25 MG TABLET (FP) ONE (22:57)
[2018-09-23] MEDS ORDERED: ASPIRIN 81 MG CHEWABLE TABLETS PO ONE (23:39)
[2018-09-23] MEDS ORDERED: LACTULOSE PO PRN (23:40)
[2018-09-23] MEDS ORDERED: CYCLOBENZAPRINE HCL 10 MG TABLET (FP) PO PRN (23:40)
[2018-09-23] MEDS ORDERED: ONDANSETRON 4 MG TABLET PO PRN (23:40)
--- NOTE | 2018-09-23 23:50 | HP ---
Admitting History and Physical - Primary Care Physician PCP: Gabbi Obrien - Admission Chief Complaint: Chest pain History of Present Illness: 53 yrs old F h/P PSVT, GERD, Chronic Pain, today present to Radiology for CT abd with IV contrast, patient has contrast allergy , she was premedicated but after receiving IV contrast developed acute shortness of breath, palpitations and the sensation of throat closing. [employer] was called at the CT, the patient was brought to the ER. on arrival, the patient was noted to be tacypenic, tachycardic to 150s and RR 30/minute. No stridor or wheezing noted on arrival. The patient was speaking in full sentences. Over the time HR improved to 7os no acute St t chnages patient c/o sharp chest pain that last for few seconds so admitted for observation, no c/o itching SOB, throat chocking. 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 Cardiovascular: Yes: HTN ...LMP: 12/11/06 - Smoking History Smoking history: Former smoker Have you smoked in the past 12 months: No If you are a former smoker, when did you quit?: 2006 - Alcohol/Substance Use Hx Alcohol Use: No Home Medications - Allergies Allergies/Adverse Reactions: Allergies Allergy/AdvReac Type Severity Reaction Status Date / Time ciprofloxacin HCl Allergy Intermediate SOB, Verified 09/23/18 17:39 [From Cipro] DIZZINESS codeine [Codeine] Allergy Intermediate DIZZINESS/DIFF Verified 09/23/18 17:39 BREATHING fentanyl AdvReac Severe Verified 09/23/18 17:39 ketamine [Ketamine] AdvReac Severe TWITCHING Verified 09/23/18 17:39 IV CONTRAST Allergy Intermediate Hives, Uncoded 09/23/18 17:39 DIFFICULTY BREATHING - Home Medications Home Medications: Ambulatory Orders Metoprolol Succinate [Toprol XL -] 12.5 mg PO BID 02/09/12 Oxycodone HCl/Acetaminophen [Percocet 10-325 mg Tablet] 1 tab PO ASDIR 09/14/14 Cyclobenzaprine HCl [Flexeril -] 10 mg PO HS PRN 09/01/17 Lactulose 1 gm PO PRN 01/20/18 Ondansetron HCl [Zofran] 4 mg PO PRN 01/20/18 Family Disease History - Family Disease History Family History: Unremarkable Review of Systems - Review of Systems Constitutional: denies: Chills, Diaphoresis, Fever Eyes: denies: Blind Spots, Blurred Vision HENT: denies: Difficult Swallowing, Ear Discharge, Ear Pain Neck: denies: Decreased ROM, Lumps, Pain on Movement Cardiovascular: reports: Chest Pain, Palpitations, Shortness of Breath. denies : Edema Respiratory: denies: Cough, Exercise Intolerance, Hemoptysis, Orthopnea, PND, Snoring Gastrointestinal: reports: Abdominal Pain, Constipation. denies: Bloating Genitourinary: denies: Burning, Discharge, Dysuria Musculoskeletal: reports: Back Pain Integumentary: reports: Eczema. denies: Blister, Bruising, Change in Color, Lesions, Pruritis, Rash Neurological: denies: Change in LOC, Change in Speech, Confusion, Dizziness, Incoordination Endocrine: denies: Excessive Sweating, Flushing Psychiatric: denies: Altered Sleep Pattern, Anxiety, Depression Physical Examination Vital Signs: Vital Signs Temperature 98.3 F 09/23/18 16:53 Pulse Rate 87 09/23/18 16:53 Respiratory Rate 22 H 09/23/18 16:53 Blood Pressure 124/84 09/23/18 16:53 O2 Sat by Pulse Oximetry (%) 100 09/23/18 16:53 Constitutional: Yes: Well Nourished, No Distress Eyes: Yes: Conjunctiva Clear, EOM Intact HENT: Yes: Atraumatic, Normocephalic Neck: Yes: Supple, Trachea Midline Cardiovascular: Yes: Regular Rate and Rhythm, S1, S2. No: Tachycardia, JVD, Gallop, Murmur Respiratory: Yes: Regular, CTA Bilaterally Gastrointestinal: Yes: Normal Bowel Sounds, Soft Musculoskeletal: Yes: Back Pain. No: Joint Stiffness, Joint Swelling Extremities: No: Calf Tenderness Edema: No Peripheral Pulses WNL: Yes Peripheral Pulses: Left Doralis Pedis: 1+, Right Dorsalis Pedis: 1+ Integumentary: No: Erythema, Rash Neurological: Yes: Alert, Oriented, Cran Nerves II-XII Intact ...Motor Strength: WNL, LUE, LLE, RUE, RLE Labs: CBC, BMP 09/23/18 20:15 09/23/18 20:15 CBC,CMP WBC 6.6 K/mm3 (4.0-10.0) 09/23/18 20:15 RBC 4.25 M/mm3 (3.60-5.2) 09/23/18 20:15 Hgb 13.0 GM/dL (10.7-15.3) 09/23/18 20:15 Hct 37.8 % (32.4-45.2) 09/23/18 20:15 MCV 89.0 fl (80-96) 09/23/18 20:15 MCH 30.6 pg (25.7-33.7) 09/23/18 20:15 MCHC 34.3 g/dl (32.0-36.0) 09/23/18 20:15 RDW 13.9 % (11.6-15.6) D 09/23/18 20:15 Plt Count 210 K/MM3 (134-434) 09/23/18 20:15 MPV 8.2 fl (7.5-11.1) 09/23/18 20:15 Absolute Neuts (auto) 6.1 K/mm3 (1.5-8.0) 09/23/18 20:15 Neutrophils % 92.3 % (42.8-82.8) H D 09/23/18 20:15 Neutrophils % (Manual) 89.0 % (42.8-82.8) H 09/23/18 20:15 Band Neutrophils % 6.0 % 09/23/18 20:15 Lymphocytes % 6.4 % (8-40) L D 09/23/18 20:15 Lymphocytes % (Manual) 5.0 % (8-40) L 09/23/18 20:15 Monocytes % 1.1 % (3.8-10.2) L D 09/23/18 20:15 Monocytes % (Manual) 0 % (3.8-10.2) L 09/23/18 20:15 Eosinophils % 0.0 % (0-4.5) D 09/23/18 20:15 Eosinophils % (Manual) 0.0 % (0-4.5) 09/23/18 20:15 Basophils % 0.2 % (0-2.0) 09/23/18 20:15 Basophils % (Manual) 0.0 % (0-2.0) 09/23/18 20:15 Nucleated RBC % 0 % (0-0) 09/23/18 20:15 Sodium 142 mmol/L (136-145) 09/23/18 20:15 Potassium 4.4 mmol/L (3.5-5.1) 09/23/18 20:15 Chloride 108 mmol/L (98-107) H 09/23/18 20:15 Carbon Dioxide 25 mmol/L (21-32) 09/23/18 20:15 Anion Gap 9 MMOL/L (8-16) 09/23/18 20:15 BUN 12.4 mg/dL (7-18) 09/23/18 20:15 Creatinine 0.9 mg/dL (0.55-1.3) 09/23/18 20:15 Est GFR (CKD-EPI)AfAm 83.43 09/23/18 20:15 Est GFR (CKD-EPI)NonAf 71.98 09/23/18 20:15 Random Glucose 180 mg/dL (74-106) H 09/23/18 20:15 Calcium 9.1 mg/dL (8.5-10.1) 09/23/18 20:15 Magnesium 2.3 mg/dL (1.8-2.4) 09/23/18 20:15 Total Bilirubin 0.3 mg/dL (0.2-1) 09/23/18 20:15 AST 26 U/L (15-37) 09/23/18 20:15 ALT 41 U/L (13-61) 09/23/18 20:15 Alkaline Phosphatase 104 U/L (45-117) 09/23/18 20:15 Creatine Kinase 73 U/L (26-192) 09/23/18 20:15 Troponin I < 0.02 ng/ml (0.00-0.05) 09/23/18 20:15 Total Protein 6.9 g/dl (6.4-8.2) 09/23/18 20:15 Albumin 3.7 g/dl (3.4-5.0) 09/23/18 20:15 Imaging - Results Chest X-ray: Report Reviewed (Normal) EKG: Report Reviewed (Ist simus tachycardia 150s on CT Monitor, 2nd [address] T chnages poor progression of R wave V1-V3 prominent P wave) Problem List - Problems (1) Chest pain Assessment/Plan: atypical less likely ACs f/u serial Ce ECHO, cardiology consult recived ASA on B Blockers F/U Lipid TSH HbA1C level Code(s): R07.9 - CHEST PAIN, UNSPECIFIED (2) Allergy to intravenous contrast Assessment/Plan: r cont PRN benadryl and Po Prednisone 20 mg BID 4 doses, IV Famotidine 20 mg BID Code(s): Z91.041 - RADIOGRAPHIC DYE ALLERGY STATUS (3) SVT (supraventricular tachycardia) Assessment/Plan: cont Po Metoprolol at home dose Code(s): I47.1 - SUPRAVENTRICULAR TACHYCARDIA (4) Chronic pain Assessment/Plan: resume home meds Code(s): G89.29 - OTHER CHRONIC PAIN
[2018-09-24] MEDS ORDERED: ASPIRIN 325 MG TABLET ONE (01:22)
[2018-09-24] MEDS ORDERED: FAMOTIDINE 20 MG/50 ML IVPB 20 MG/50 ML MG IVPB ONE ×2 (01:23→10:54)
[2018-09-24] MEDS: FAMOTIDINE 20 MG/50 ML IVPB 20 MG/50 ML MG IVPB SCH ×2 (01:35→11:00)
[2018-09-24 06:11] LABS: BASO % 0.1 % (0-2.0); HEMATOCRIT 38.8 % (32.4-45.2); HEMOGLOBIN 13.1 GM/dL (10.7-15.3); LYMPH % 7.1 % (8-40); MCH 30.4 pg (25.7-33.7); MCHC 33.7 g/dl (32.0-36.0); MEAN PLT VOLUME 8.5 fl (7.5-11.1); MONO % 1.6 % (3.8-10.2); NEUT % 91.2 % (42.8-82.8); PLATELET COUNT 219 K/MM3 (134-434); RBC 4.31 M/mm3 (3.60-5.2); RDW 13.9 % (11.6-15.6); WHITE BLOOD COUNT 8.1 K/mm3 (4.0-10.0)
[2018-09-24 06:22] VITALS: TEMP 98.7
[2018-09-24 06:52] LABS: ALBUMIN 3.7 g/dl (3.4-5.0); BILIRUBIN,TOTAL 0.3 mg/dL (0.2-1); BLOOD UREA NITROGEN 15.2 mg/dL (7-18); CALCIUM 9.2 mg/dL (8.5-10.1); CREATININE 0.7 mg/dL (0.55-1.3); POTASSIUM 4.4 mmol/L (3.5-5.1); TOT PROT 6.8 g/dl (6.4-8.2)
[2018-09-24] MEDS ORDERED: CYCLOBENZAPRINE HCL 10 MG TABLET (FP) ONE (07:31)
--- NOTE | 2018-09-24 09:24 | CON.CARD ---
Consult Consult Specialty:: cardiology Reason for Consultation:: palpitations (hx PSVT); shortness of breath immediately upon being given contrast for CT abdomen - History of Present Illness History of Present Illness: The patient is a 53 year old white female with past medical history significant for SVT, Acid reflux, Chronic abd pain, Gallstones, Cholecystectomy, Diverticulitis, GERD, bilateral LE lymphemema,bronchial asthma (not on Singulair or prophylactic inhalers; smoked 1 ppd cigarettes x 25 yrs; quit nearly 20 yrs ago), who Presents to the emergency department s/p an allergic reaction. The patient reports she was scheduled for an outpatient abdominal CT secondary to chronic abdominal pain. The patient reports a known allergic history to IV contrast, patient reports taking prednisone and medication to prepare for the contrast. The patient was getting the scan, when she had acute shortness of breath, palpitations and the sensation of throat closing;. Rapid response was called at the CT, the patient was brought to the ER. on arrival, and was noted to be dyspneic, tachycardic to 150s and RR 30/minute. No stridor or wheezing noted on arrival; the pt denies chest pain. The patient was speaking in full sentences. Allergies:Ciprofloxacin HCl, Codeine, Ketamine, IV Contrast PCP: Dr. Micah Seo GI: Dr. Gerardo. 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 Cardio/Vascular: Yes: HTN, Other (PSVT) Pulmonary: Yes: Asthma ...LMP: 12/11/06 - Alcohol/Substance Use Hx Alcohol Use: No - Smoking History Smoking history: Former smoker Have you smoked in the past 12 months: No If you are a former smoker, when did you quit?: 2005 Home Medications - Allergies Allergies/Adverse Reactions: Allergies Allergy/AdvReac Type Severity Reaction Status Date / Time ciprofloxacin HCl Allergy Intermediate SOB, Verified 09/23/18 17:39 [From Cipro] DIZZINESS codeine [Codeine] Allergy Intermediate DIZZINESS/DIFF Verified 09/23/18 17:39 BREATHING fentanyl AdvReac Severe Verified 09/23/18 17:39 ketamine [Ketamine] AdvReac Severe TWITCHING Verified 09/23/18 17:39 IV CONTRAST Allergy Intermediate Hives, Uncoded 09/23/18 17:39 DIFFICULTY BREATHING - Home Medications Home Medications: Ambulatory Orders Metoprolol Succinate [Toprol XL -] 12.5 mg PO BID 02/09/12 Oxycodone HCl/Acetaminophen [Percocet 10-325 mg Tablet] 1 tab PO ASDIR 09/14/14 Cyclobenzaprine HCl [Flexeril -] 10 mg PO HS PRN 09/01/17 Lactulose 1 gm PO PRN PRN 01/20/18 Ondansetron HCl [Zofran] 4 mg PO PRN PRN 01/20/18 Family Disease History - Family Disease History Family Disease History: Diabetes: Father (HTN; hyperliipidemia), Other: Father Vital Signs: Vital Signs Temperature 98.7 F 09/24/18 06:19 Pulse Rate 81 09/24/18 06:19 Respiratory Rate 18 09/24/18 06:19 Blood Pressure 104/50 L 09/24/18 06:19 O2 Sat by Pulse Oximetry (%) 97 09/24/18 06:19 - Other Data Labs, Other Data: CBC, BMP 09/24/18 05:38 09/24/18 05:38 Troponin, BNP 09/23/18 20:15 Troponin I < 0.02 Troponin, BNP 09/23/18 20:15 Troponin I < 0.02 Problem List - Problems (1) Lymphedema Code(s): I89.0 - LYMPHEDEMA, NOT ELSEWHERE CLASSIFIED (2) HTN (hypertension) Code(s): I10 - ESSENTIAL (PRIMARY) HYPERTENSION (3) Bronchial asthma Code(s): J45.909 - UNSPECIFIED ASTHMA, UNCOMPLICATED (4) Overweight (BMI 25.0-29.9) Code(s): E66.3 - OVERWEIGHT (5) Allergy to intravenous contrast Code(s): Z91.041 - RADIOGRAPHIC DYE ALLERGY STATUS (6) Palpitations Code(s): R00.2 - PALPITATIONS (7) SVT (supraventricular tachycardia) Assessment/Plan: Pt has been taking metoprolol for many years for PSVT and HTN. She said the metoprolol has helped significantly, but she still sometimes has palpitations; denies syncope. Await ECHO: if no significant abnormalities, will follow with PMD and cardiology as outpatient. Obtain record of stress test done "a few years" ago. Pt would benefit from long-term ambulatory telemetry monitoring; may benefit from ablation therapy. Code(s): I47.1 - SUPRAVENTRICULAR TACHYCARDIA (8) Lower extremity edema Code(s): R60.0 - LOCALIZED EDEMA
[2018-09-24] MEDS ORDERED: oxyCODONE HCL 5 MG TABLET PO ONE (09:27)
[2018-09-24] MEDS ORDERED: oxyCODONE HCL 5 MG TABLET ONE (09:29)
[2018-09-24] MEDS ORDERED: metoPROLOL SUCCINATE 25 MG TAB.SR.24H (FP) PO SCH (10:00)
[2018-09-24 10:18] LABS: ANISOCYTOSIS 0; MACROCYTOSIS 0; PLATELET ESTIMATE NORMAL
--- NOTE | 2018-09-24 10:55 | ECHO ---
Name: KIM BRANDT Exam:Adult Echocardiogram Study Date: 09/24/2018 08:08 AM Age: 53 yrs Reason For Study: SYNCOPE Height: 68 in Weight: 215 lb BSA: 2.1 m2 MMode/2D Measurements & Calculations IVSd: 0.84 cm Ao root diam: 3.4 cm LVIDd: 4.5 cm LA dimension: 3.2 cm LVIDs: 3.0 cm LVPWd: 0.86 cm EDV(Teich): 92.4 ml LVOT diam: 1.9 cm ESV(Teich): 36.4 ml Doppler Measurements & Calculations MV E max eddie: 72.1 cm/sec Ao V2 max: 139.4 cm/sec MV A max eddie: 71.1 cm/sec Ao max P.8 mmHg MV E/A: 1.0 Ao V2 mean: 99.2 cm/sec Ao mean P.6 mmHg Ao V2 VTI: 30.0 cm TR max eddie: 185.9 cm/sec Med Peak E' Eddie: 5.6 cm/sec TR max P.8 mmHg Med E/e': 12.9 Lat Peak E' Eddie: 7.2 cm/sec Lat E/e': 10.0 Left Ventricle Left ventricular systolic function is normal. Ejection Fraction = 55-60%. The transmitral spectral Do ppler flow pattern is normal for age. Right Ventricle The right ventricle is normal in size and function. Atria Normal left and right atrial size and function. Mitral Valve The mitral valve is normal in structure and function. There is no mitral valve stenosis. There is mil d mitral regurgitation. Tricuspid Valve The tricuspid valve is normal in structure and function. There is mild tricuspid regurgitation. Right ventricular systolic pressure is normal. Aortic Valve The aortic valve opens well. No hemodynamically significant valvular aortic stenosis. No aortic regur gitation is present. Pulmonic Valve The pulmonic valve is not well seen, but is grossly normal. There is no pulmonic valvular stenosis. T here is no pulmonic valvular regurgitation. Great Vessels The aortic root is normal size. Pericardium/Pleura There is no pericardial effusion. Interpretation Summary Left ventricular systolic function is normal. Ejection Fraction = 55-60%. The right ventricle is normal in size and function. There is mild mitral regurgitation. There is mild tricuspid regurgitation. There is no pericardial effusion. MD Cummins *Elizabeth 09/24/2018 10:55 AM
--- NOTE | 2018-09-24 10:59 | DS ---
Physical Examination Vital Signs: Vital Signs Temperature 98.7 F 09/24/18 06:19 Pulse Rate 81 09/24/18 06:19 Respiratory Rate 18 09/24/18 06:19 Blood Pressure 104/50 L 09/24/18 06:19 O2 Sat by Pulse Oximetry (%) 97 09/24/18 06:19 Constitutional: Yes: No Distress, Calm Eyes: Yes: EOM Intact HENT: Yes: Normocephalic Neck: Yes: Trachea Midline Cardiovascular: Yes: Regular Rate and Rhythm Respiratory: Yes: CTA Bilaterally Gastrointestinal: Yes: Normal Bowel Sounds, Soft Edema: No Peripheral Pulses WNL: Yes Neurological: Yes: WNL Labs: CBC, BMP 09/24/18 05:38 09/24/18 05:38 Discharge Summary Reason For Visit: PALPITATIONS,CHEST PAIN Current Active Problems Allergy to intravenous contrast (Acute) Bronchial asthma (Acute) Chest pain (Acute) Chronic pain (Acute) Dyspnea (Acute) HTN (hypertension) (Acute) Lymphedema (Acute) Overweight (BMI 25.0-29.9) (Acute) Palpitations (Acute) SVT (supraventricular tachycardia) (Acute) Hospital Course: admitted after sudden onset palpitations and throat closing up within 12 hours after receiving iv contrast for an abdominal scan. has known h/o iv contrast allergy, she was premedicated,. but still developed symptoms. in er in sinus tach, felt better after iv steroid , bendaryl. cardiac enzymes negative, echo unremarkable, stable to dc home with short course oral steroids. f/up in office next week. Condition: Fair - Instructions Diet, Activity, Other Instructions: f/up with on Thursday Disposition: HOME - Home Medications Comprehensive Discharge Medication List: Ambulatory Orders Metoprolol Succinate [Toprol XL -] 12.5 mg PO BID 02/09/12 Oxycodone HCl/Acetaminophen [Percocet 10-325 mg Tablet] 1 tab PO ASDIR 09/14/14 Cyclobenzaprine HCl [Flexeril -] 10 mg PO HS PRN 09/01/17 Lactulose 1 gm PO PRN PRN 01/20/18 Ondansetron HCl [Zofran] 4 mg PO PRN PRN 01/20/18
[2018-09-24 11:41] VITALS: BP 122/62; PULSE 72
--- NOTE | 2018-09-24 13:41 | EKG ---
Test Reason : Blood Pressure : / mmHG Vent. Rate : 083 BPM Atrial Rate : 083 BPM P-R Int : 156 ms QRS Dur : 086 ms QT Int : 402 ms P-R-T Axes : 069 023 041 degrees QTc Int : 472 ms NORMAL SINUS RHYTHM BIATRIAL ENLARGEMENT ABNORMAL ECG WHEN COMPARED WITH ECG OF 13-AUG-2015 14:16, NO SIGNIFICANT CHANGE WAS FOUND Confirmed by MAIA COLEMAN MD ([id number]) on 09/24/2018 1:41:29 PM Referred By: Confirmed By:MAIA COLEMAN MD
[2018-09-24] MEDS ORDERED: oxyCODONE HCL 5 MG TABLET PO PRN (15:50)
[2018-09-24] MEDS ORDERED: ACETAMINOPHEN 325 MG TABLET (FP) PO PRN (15:50)
[2018-09-24] MEDS ORDERED: ACETAMINOPHEN 325 MG TABLET (FP) PO SCH (15:51)
[2018-09-24] MEDS ORDERED: oxyCODONE HCL 5 MG TABLET PO SCH (15:52)
== END 2018-09-24 11:45 | disposition home or self-care (01) ==
LOC: JER 16:53 → JERBED 23:38
PROVIDERS: ADMIT Internal Medicine; ATTEND Internal Medicine
PROC: 3E0333Z Introduction of Anti-inflammatory into Peripheral Vein, Percutaneous Approach (ICD-10-PCS; principal; 2018-09-23)
PROC: 3E033GC Introduction of Other Therapeutic Substance into Peripheral Vein, Percutaneous Approach (ICD-10-PCS; 2018-09-23)
DX: R00.2 Palpitations (principal); R06.00 Dyspnea, unspecified; R07.89 Other chest pain; I47.1 Supraventricular tachycardia; T50.8X5A Adverse effect of diagnostic agents, initial encounter; Y92.238 Other place in hospital as the place of occurrence of the external cause; G89.29 Other chronic pain; K21.9 Gastro-esophageal reflux disease without esophagitis; J45.909 Unspecified asthma, uncomplicated; Z87.891 Personal history of nicotine dependence; Z88.5 Allergy status to narcotic agent; Z88.1 Allergy status to other antibiotic agents; Z91.041 Radiographic dye allergy status; I89.0 Lymphedema, not elsewhere classified; I10 Essential (primary) hypertension; E66.3 Overweight; Z68.26 Body mass index [BMI] 26.0-26.9, adult; R60.0 Localized edema
CPT/HCPCS: 36415; 71045-TC-FY; 80053; 80061; 82550; 83036; 83721; 83735; 84439; 84443; 84484; 85025; 93005; 93010; 93306-TC; 96374; 96375; 99284-25; G0378; J7030